=== PATIENT | male | born 1985 | race Caucasian/White ===

== ENCOUNTER → 2023-07-11 | Emergency (ER) | payer BC ==
[~2023-07-11] VITALS: Ht 185.4 cm; Wt 106.6 kg
[~2023-07-11] MED LIST: CARI350T PO; CARISOPRODOL 350 MG TABLET ONE; CARISOPRODOL 350 MG TABLET PO ONE; IBUP-1957 PO; IBUPROFEN 400 MG TABLET ONE; IBUPROFEN 400 MG TABLET PO ONE
[2023-07-11 01:45] VITALS: BP 135/95; TEMP 98.1; O2SAT 98
== END | disposition home or self-care (01) ==
LOC: ER 00:43
DX: S29.012A Strain of muscle and tendon of back wall of thorax, initial encounter (principal); X58.XXXA Exposure to other specified factors, initial encounter; Y93.89 Activity, other specified; Y92.89 Other specified places as the place of occurrence of the external cause; Y99.8 Other external cause status